=== PATIENT | female | born 1975 | race Two or more races ===

== ENCOUNTER 2019-03-02 22:08 | Emergency (ER) | payer SELFPAY ==
[~2019-03-02] VITALS: Ht 160 cm; Wt 64.4 kg
[2019-03-03 01:50] VITALS: BP 129/96
[2019-03-03] MEDS ORDERED: KETOROLAC TROMETH 60MG/2ML VIAL IM ONE (02:00)
[2019-03-03] MEDS ORDERED: methylPREDNISolone SOD SUCC 125 MG/2 ML VL IM ONE (02:00)
== END 2019-03-03 03:24 | disposition home or self-care (01) ==
LOC: ER 22:08
DX: M25.551 Pain in right hip (principal); G89.29 Other chronic pain; M54.5 Low back pain; Z88.6 Allergy status to analgesic agent
CPT/HCPCS: 73502; 81025; 96372; 99284; J1885; J2930